=== PATIENT | male | born 1990 ===

== ENCOUNTER 2017-05-10 09:43 | Emergency (ER) | payer OTHER ==
[2017-05-10 09:52] VITALS: RESP 18; O2SAT 99
[2017-05-10] MEDS ORDERED: Naproxen 550 mg Tab PO STA (10:09)
[2017-05-10] MEDS ORDERED: Naproxen 550 mg Tab PO ONE (10:32)
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
--- NOTE | 2017-05-10 11:17 | RAD ---
PROCEDURE: Left Knee Radiographs. HISTORY: Pain. COMPARISON: None. FINDINGS: BONES: Benign-appearing bone island distal femoral metaphysis. No fracture. Medial femoral condylar bordering subcortical cystic change intercondylar fossa possible. JOINTS: Normal. No osteoarthritis. JOINT EFFUSION: None. OTHER FINDINGS: None. IMPRESSION: No fracture.
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
[2017-05-10 12:15] VITALS: BP 119/79; PULSE 62; TEMP 97.4
== END 2017-05-10 12:14 | disposition home or self-care (01) ==
LOC: C.ER 09:43
DX: S73.102A Unspecified sprain of left hip, initial encounter (principal); S83.92XA Sprain of unspecified site of left knee, initial encounter; V13.4XXA Pedal cycle driver injured in collision with car, pick-up truck or van in traffic accident, initial encounter; Y93.55 Activity, bike riding; Y92.410 Unspecified street and highway as the place of occurrence of the external cause